=== PATIENT | female | born 1955 | race Caucasian/White ===

== ENCOUNTER 2020-02-13 13:06 | Emergency (ER) | payer OTHER ==
--- NOTE | 2020-02-13 13:26 | RAD ---
RIGHT ANKLE 3 VIEWS: HISTORY: Injury, right ankle pain FINDINGS: Soft tissue swelling is present. There are mildly-displaced fractures of the medial malleolus and the distal fibular shaft.
[2020-02-13] MEDS ORDERED: Ketorolac Tromethamine 60 MG/2 ML VIAL ONE (13:36)
== END 2020-02-13 14:30 | disposition home or self-care (01) ==
LOC: MADERS 13:06
DX: S82.51XA Displaced fracture of medial malleolus of right tibia, initial encounter for closed fracture (principal); I10 Essential (primary) hypertension; X50.1XXA Overexertion from prolonged static or awkward postures, initial encounter
CPT/HCPCS: 27810; 96372; J1885